=== PATIENT | female | born 1970 | race Caucasian/White ===

== ENCOUNTER 2016-11-29 23:35 | Emergency (ER) | payer OTHER ==
[2016-11-30] MEDS ORDERED: IBUPROFEN 600 MG TABLET ONE (01:00)
[2016-11-30] MEDS ORDERED: OXYCODONE HCL 5 MG TABLET ONE (01:00)
--- NOTE | 2016-11-30 08:12 | RAD ---
11/30/2016 8:08 AM ANKLE-RIGHT 3 VIEW History: Slipped and fell. Twisting injury. Initial encounter. Technique: 3 view Ankle Side:Right Comparison: None Findings: Bones: Transverse oblique fracture with intra-articular extension of the lateral malleolus is present. There is posterior displacement of the dominant fracture fragment by approximately 5 mm. Joints: Widening of the medial mortise is present of approximately 5 mm. Joints:Remaining joints are unremarkable. Associated Findings: Ankle joint effusion and soft tissue swelling. Impression: 1. Transverse oblique, intra-articular fracture of the lateral malleolus with widening of the mortise joint medially.
== END 2016-11-30 02:35 | disposition home or self-care (01) ==
LOC: ED 23:35
DX: S82.831A Other fracture of upper and lower end of right fibula, initial encounter for closed fracture (principal); Q60.0 Renal agenesis, unilateral; I10 Essential (primary) hypertension; F17.210 Nicotine dependence, cigarettes, uncomplicated; W01.0XXA Fall on same level from slipping, tripping and stumbling without subsequent striking against object, initial encounter; Z88.1 Allergy status to other antibiotic agents; Z88.0 Allergy status to penicillin; Z88.2 Allergy status to sulfonamides; Z88.8 Allergy status to other drugs, medicaments and biological substances

== ENCOUNTER 2016-12-09 08:09 | Day surgery (SDC) | payer OTHER ==
--- NOTE | 2016-12-08 17:15 | HP ---
DATE OF CLINIC: 12/08/16 VAL SORTO : 1970 PLANNED PROCEDURE: Right Ankle Distal Fibular Open Reduction Internal Fixation and Possible Syndesmosis Stabilization DATE OF SURGERY: December 09, 2016 SURGEON: Chriss Mills M.D. PCP: Franci Marino PA-C REFERRED HERE [facility]. HISTORY OF PRESENT ILLNESS Val Sorto is a 46 year old female. * Medication list reviewed with patient allergy list reviewed with patient. * Tried NSAIDS. 46-year-old female who slipped and fell and inverted her ankle over a transition on her hardware floors on the . She has had pain in the ankle since that time. She was seen in the ED where xrays were obtained and she was placed into a L&U splint and she is here today for f/u. She is complaining of continued sensation of instability in the ankle and significant pain. She has not tolerated the splint well. She has been nonweightbearing on it. She doesn't have any previous injuries at this site and no other extremity complaints. Past medical and surgical history and noncontributory. CURRENT MEDICATION * *Supplement Miscellaneous as directed Probiotic, womens health, hair, skin & nails., 0 days, 0 refills * Claritin 10 MG Tablet as directed 0 days, 0 refills * HydroCHLOROthiazide 12.5 MG Tablet 1 twice a day 30 days, 0 refills * Hydrocodone-Acetaminophen 5-325 MG Tablet as directed 3 days, 0 refills * Ibuprofen 200 MG Tablet as directed 0 days, 0 refills PAST MEDICAL/SURGICAL HISTORY Reported: Medical: A previous fracture Left foot fx in college, renal history has 1, and Hypertension. Surgical / Procedural: Prior surgery sinus surgery Sep 1999. SOCIAL HISTORY Behavioral: Current smoker 1/2 pack per day for 20 years. Not chewing tobacco. Smoking status: Current everyday smoker. Alcohol: A social drinker. Drug Use: Not using drugs. 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 ALLERGIES * Adwoa Reaction: Skin Rashes/Hives * Amoxicillin Reaction: Nausea/Vomiting/Diarrhea * Erythromycin Derivatives Reaction: Skin Rashes/Hives * Penicillins Reaction: Nausea/Vomiting/Diarrhea * Sulfa Drugs Reaction: Skin Rashes/Hives No reaction to anesthetics. FAMILY HISTORY Family medical history No known medical issues REVIEW OF SYSTEMS No recent constitutional symptoms to include fevers and chills. No recent cardiovascular symptoms to include chest pain or palpitations. No recent respiratory symptoms to include shortness of breath or recent infections. PHYSICAL FINDINGS * Vitals taken 12/08/2016 02:34 pm BP-Sitting L 126/107 mmHg BP Cuff Size Regular Pulse Rate-Sitting 93 bpm Temp-Oral 97.8 F Height 67 in Weight 200 lbs Body Mass Index 31.3 kg/m2 Body Surface Area 2.02 m2 Pain Level 6 Ears, Nose, Throat: * ENT: normal. Lungs: * Clear to auscultation. Cardiovascular: Heart Rate And Rhythm: * Normal. Abdomen: * Normal. Neurological: Motor: * Dominant Hand = Right Hand. Patient is a well-developed, well-nourished female in no acute distress. She is awake, alert and conversant throughout the encounter. She is obese with a BMI of 31.3. CARDIOVASCULAR: Intact peripheral pulses on bilateral lower extremities. No significant edema on inspection of bilateral lower extremities. NEUROLOGIC: Patient had intact coordinated composite motion of the bilateral lower extremities and sensation intact to light touch in all distributions of bilateral lower extremities. PSYCHIATRIC: Patient was oriented to person, place and time and displayed appropriate mood and affect during the encounter. SKIN: Exam of the skin on bilateral lower extremities showed no significant scars, lesions, rashes or masses. FOCUSED MUSCULOSKELETAL EXAM: Patient is mobilizing with the assistance of crutches or a wheelchair. She is nonweightbearing on her right lower extremity. She has mild to moderate swelling and significant ecchymosis over the lower portion of her right lower leg. She has full motion at the knee. She's got motion limited secondary to pain at the ankle. She has good sensation distally and a well perfused foot. IMAGING Injury films from the ED show lateral malleolus fracture with increased medial clear space. Postop casting films from today show unacceptable alignment. ASSESSMENT 46 y/o female with unstable right lateral mallelolus fracture and deltoid ligament injury. THERAPY * Patient fall risk screen positive. * Patient eligible for fall risk assessment. * Patient received fall risk assessment. PLAN * Pain in right ankle and joints of right foot Radiology/X-ray: Ankle Right X-ray Complete [id number] * OTHER Follow Up- Mills ONLY 2wk RC Right distal fibula fracture. DOI: 11/29/16 XR PRIOR in CAST * Disp fx of lateral malleolus of right fibula, init Percocet 5-325 MG TABS, as directed Take 1-2 tablets every 4 hours as needed for pain, 10 days, 0 refills Patient will be taken to OR tomorrow for ORIF of the ankle to restore tibio-talar alignment. CARE TEAM Franci Marino SURGICAL CONSENT We have discussed surgical options including right ankle distal fibula ORIF, possible syndesmosis stabilization and nonoperative management. The patient was counseled in detail regarding the diagnosis, treatment options available, prognosis of each treatment option and the potential risks and complications. The risks of surgery include, but are not limited to, anesthetic , neurovascular complications, pulmonary embolism, deep vein thrombosis, wound dehiscence, failure of any or all of the discussed procedures, infection of the joint or surrounding soft tissue, need for revision surgery, chronic pain, limitations in activities of daily living, inability to return to work, and loss of normal range of motion or functional use of the extremity. There is the possibility of failure over time that may require additional operative or nonoperative treatment. The patient acknowledged that there are a number of perioperative risks not mentioned here and would still like to proceed. The patient is aware of and understands these risks, and wishes to proceed with the proposed surgical procedure and other procedures as indicated at the time of surgery. We will have the patient see their PCP for a preoperative medical risk assessment. The preoperative instructions were reviewed with the patient and all questions were answered.
[2016-12-09] MEDS ORDERED: MIDAZOLAM HCL 5 MG/5 ML VIAL ONE ×2 (10:00→10:20)
[2016-12-09] MEDS ORDERED: FENTANYL 250 MCG/5 ML AMP ONE (10:01)
[2016-12-09] MEDS ORDERED: DEXAMETHASONE SOD PHOS 4 MG/1 ML VIAL ONE (10:02)
[2016-12-09] MEDS ORDERED: ROPIVACAINE 0.5% 30 ML VIAL ONE (10:02)
[2016-12-09] MEDS ORDERED: CEFAZOLIN SODIUM 2 GRAM PREMIX 100 ML IV ONE (10:30)
[2016-12-09] MEDS ORDERED: CLINDAMYCIN 900 MG PREMIX 50 ML IV ONE (10:34)
[2016-12-09] MEDS ORDERED: LIDOCAINE 2% (PRES FREE) 5 ML VIAL ONE (12:40)
[2016-12-09] MEDS ORDERED: MIDAZOLAM HCL 1 MG/ML 2ML VIAL ONE (12:49)
[2016-12-09] MEDS ORDERED: PROMETHAZINE HCL 25 MG/ML VIAL IM PRN (12:58)
[2016-12-09] MEDS ORDERED: ONDANSETRON 4 MG/2ML 2 ML VIAL IV PRN ×2 (12:58→14:29)
[2016-12-09] MEDS ORDERED: FENTANYL 100 MCG/2 ML VIAL IV PRN (12:58)
[2016-12-09] MEDS ORDERED: MORPHINE SULFATE 4 MG/ML SYRINGE IV PRN (12:58)
[2016-12-09] MEDS ORDERED: LACTATED RINGERS 1,000 ML IV SCH ×2 (13:00→14:29)
[2016-12-09] MEDS ORDERED: KETOROLAC TROMETHAMINE 30 MG/ML 1 ML VIAL ONE (13:18)
[2016-12-09] MEDS ORDERED: PROPOFOL 0 ML IV ONE (13:19)
--- NOTE | 2016-12-09 14:02 | PCMBPN ---
Brief Post Op Note: Date of Procedure: 12/09/16 Start Time: 1300 Preoperative Diagnosis: 1. Right Ankle Lateral Malleolus Fracture Postoperative Diagnosis: 1. Same Procedure: Right Ankle Lateral Malleolus ORIF Surgeon: Chriss Mills MD Assist:PETR Newton Anesthesia: Sukumar Morales CRNA Findings: See above Condition: Stable Complications: None IV Fluids: 700 mLs of LR Urine Output: 0 mLs Estimated Blood Loss: 5 mLs Tourniquet Time: 43min at 250mmHg Specimens: N/A Implants: Synthes 1/3 Tubular 6-hole plate, 4-0mm Cancellous Screws: (14mmx1, 16mmx1,18mmx1), 3.5 Cortex Screws: (12mmx2, 14mmx1, 26mmx1) Drains: [N/A]
[2016-12-09] MEDS ORDERED: OXYCODONE/ACETAMINOPHEN 5/325 MG TABLET PO PRN (14:29)
[2016-12-09] MEDS ORDERED: HYDROMORPHONE HCL 1 MG/ML SYRINGE IV PRN (14:29)
[2016-12-09] MEDS ORDERED: DIPHENHYDRAMINE HCL 50 MG/1 ML VIAL IV PRN (14:29)
[2016-12-09] MEDS ORDERED: ACETAMINOPHEN 325 MG TABLET PO PRN (14:29)
--- NOTE | 2016-12-09 14:52 | RAD ---
EXAMINATION: ANKLE LIMITED RIGHT 1-2 VIEWS CLINICAL INDICATION: Postop fibular fracture. COMPARISON: 12/09/2016. FINDINGS: A lateral compression plate and anterior posterior bridging screw traverses the lateral malleolus fracture. Alignment is anatomic. The tibiotalar and visualized subtalar joint space relationships are maintained. Soft tissue changes but with recent surgery is noted. IMPRESSION: Satisfactory postoperative appearance ORIF distal right fibular/lateral malleolus fracture.
--- NOTE | 2016-12-09 15:09 | RAD ---
EXAMINATION: ANKLE LIMITED RIGHT 1-2 VIEWS CLINICAL INDICATION: Fluoroscopic assisted ORIF lateral malleolus fracture. COMPARISON: 12/08/2016 FINDINGS: Fluoroscopic assistance was provided. 7.8 seconds of fluoroscopy time was used. Patient is status post lateral compression plate fixation in anterior posterior bridging screw fixation of the distal fibular fracture. Alignment appears anatomic. The tibiotalar and visualized subtalar joint space relationships are maintained. Postsurgical changes a soft tissue are noted. IMPRESSION: 7.8 seconds of fluoroscopy provided for ORIF distal fibular fracture. 3 images are available for review. Alignment is anatomic.
[2016-12-09] MEDS ORDERED: OXYCODONE/ACETAMINOPHEN 5/325 MG TABLET ONE (16:41)
--- NOTE | 2016-12-09 17:45 | OP ---
Val SORTO : 1970 [id number] DATE OF PROCEDURE: December 09, 2016 PREOPERATIVE DIAGNOSIS: Right ankle lateral malleolus fracture. POSTOPERATIVE DIAGNOSIS: Right ankle lateral malleolus fracture. PROCEDURE PERFORMED: RIGHT ANKLE LATERAL MALLEOLUS OPEN REDUCTION INTERNAL FIXATION. SURGEON: Chriss Mills M.D. HEADLINE WRITER: Spencer Martinez P.A.-C. ANESTHESIA: Sukumar Morales C.R.N.A. SPECIMENS: No material was sent to the laboratory. ESTIMATED BLOOD LOSS: 5 mL. FLUIDS REPLACED: 700 mL of crystalloid. TOURNIQUET TIME: 43 minutes at 250 mmHg. IMPLANTS: Synthes one-third tubular plate six holes, three 4.0 cancellous screws distally, 5 mm cortical screws proximally and a 3.5 mm cortical screw for interfragmentary compression. INDICATIONS: This is a 46-year-old female who had a right ankle fracture with Ibarra B fracture of her lateral malleolus and a deltoid ligament disruption leading to tib-talar instability. An attempt at a closed reduction was done in the clinic and she had inadequate reduction parameters. She was offered open reduction internal fixation in order to restore appropriate alignment. DESCRIPTION OF PROCEDURE: The patient was identified in the preoperative holding area where she was marked with an indelible marker by the operating surgeon. She was taken to the operating room where she was placed in supine position on the operating room table. She got a single shot regional block from the anesthesia providers and had intravenous sedation. She was prepped and draped in the usual sterile fashion for surgery. She received perioperative antibiotics. A well padded pre-calibrated nonsterile tourniquet was placed on her right upper thigh. An operative time out was performed and confirmed by all members of the operative team. Her leg was elevated and exsanguinated using the Esmarch bandage and the tourniquet was inflated to 250 mmHg. A standard a lateral approach to the ankle was used. Dissection was carried down exposing the distal third of the fibula. The fracture was identified and irrigated. It was then reduced and reduction was held with a lobster claw reduction forceps. An anterior to posterior interfragmentary compression screw was placed using a 3.5 mm cortical screw and then a one third tubular neutralization plate was placed on the lateral side of the ankle. Three cortical screws were placed proximally and three cancellous screws distally. The plate was contoured to fit the end of the distal fibula. At this point we felt that we had addressed the patient's pathology. The wound was copiously irrigated with sterile saline. The periosteum which had been peeled at the beginning of the surgery was repaired over the plate with a #2-0 Vicryl. Subcutaneous tissues with #3-0 Vicryl and the skin with #3-0 Nylon. A sterile dressing of Xeroform, fluffs, web roll and an LIANE bandage was applied and the patient was placed into a neutralization boot for postoperative mobilization. The tourniquet was deflated, drapes were removed. The patient was transferred to the stretcher and taken postoperatively to postanesthesia care unit in stable condition. There were no observed intraoperative complications during this procedure. Job [id number] Cc: [facility]
== END 2016-12-09 17:15 | disposition home or self-care (01) ==
LOC: SDC 08:09
PROVIDERS: ATTEND Orthopaedic Surgery
DX: S82.61XA Displaced fracture of lateral malleolus of right fibula, initial encounter for closed fracture (principal); I10 Essential (primary) hypertension; F17.200 Nicotine dependence, unspecified, uncomplicated; W01.0XXA Fall on same level from slipping, tripping and stumbling without subsequent striking against object, initial encounter; Y92.9 Unspecified place or not applicable
CPT/HCPCS: 73600 ×2; 76000; 27792; J3010; J1100; J2795; A9270; J1885; J2250 ×3